=== PATIENT | male | born 1970 | race Hispanic/Latino ===

== ENCOUNTER 2018-04-01 07:59 | Outpatient (CLI) | payer BC ==
--- NOTE | 2018-04-01 09:41 | ULT ---
GALLBLADDER ULTRASOUND: Date: 04/01/18 HISTORY: Elevated LFTs. FINDINGS: Real-time imaging of the upper abdomen demonstrates some sludge within the gallbladder without any de finitive stones. Technologist reports a negative ultrasound Landon's sign. Common duct is 4.0 mm. The re are fatty changes of the liver. The pancreas is obscured. Right kidney is normal in size and not obstructed. IMPRESSION: 1. Gallbladder sludge without definite gallstones. 2. Fatty changes of the liver. POS: ALIYN
== END 2018-04-01 08:00 | disposition home or self-care (01) ==
LOC: SCSULT 07:59
PROVIDERS: ATTEND Internal Medicine
DX: R74.0 Nonspecific elevation of levels of transaminase and lactic acid dehydrogenase [LDH] (principal); K76.0 Fatty (change of) liver, not elsewhere classified; K82.8 Other specified diseases of gallbladder
CPT/HCPCS: 76705